=== PATIENT | female | born 1930 | race Caucasian/White ===

== ENCOUNTER 2018-11-29 00:23 | Inpatient (IN) | payer MEDICARE, BC ==
[~2018-11-29] VITALS: Ht 149.9 cm; Wt 47.6 kg
[2018-11-29 00:37] VITALS: BP 150/70
--- NOTE | 2018-11-29 00:37 | NUR ---
RUNNER MANRECREATION THERAPIST NOTES Received patient from [facility], via [facility] assisted by 2 bench repair technician, with son and [id number]. Admitted to Tele 309-2 due to UTI under the service of Roni BARRETT. Pt A/O X4, able to ambulate from gurney to bed with maximum assistance. Assisted pt to bed comfortably. Admission routine done. On tele monitor with SR. Initial skin assessment done: skin intact with bruise L upper arm - patient claimed she has no idea how did she get the bruise. With wrist brace on the right noted - patient claimed to keep her r hand awake. Kept on bed comfortably. All nursing needs attended. Brought home meds listed and to be delivered to pharmacy in AM. Home med recon done - to be F/u with MD. Patient on RA, no SOB/respiratory distress noted. Patient denies discomfort at this time. Admission ordered noted and carried out. Kept bed low and locked, siderails x2 up, call light at bedside. Will continue to monitor accordingly.
[2018-11-29 01:00] VITALS: BP 150/71
[2018-11-29] MEDS ORDERED: Z GUARD REMEDY 2 OZ OINT TP PRN (01:00)
[2018-11-29] MEDS ORDERED: MAG HYDROX/AL HYDROX/SIMETH 30 ML UDC PO PRN (01:00)
[2018-11-29] MEDS ORDERED: MAGNESIUM HYDROXIDE 30 ML UDC PO PRN (01:00)
[2018-11-29] MEDS ORDERED: ONDANSETRON HCL/PF 4 MG/2 ML VIAL IVP PRN (01:00)
[2018-11-29] MEDS ORDERED: ZOLPIDEM TARTRATE 5 MG TABLET PO PRN (01:00)
[2018-11-29] MEDS: IV NS 0.9% 1,000 ML IV PRN ×2 (01:12→20:18)
[2018-11-29] MEDS ORDERED: PANT40TA2 PO (01:33)
[2018-11-29] MEDS ORDERED: metoprolol (01:33)
[2018-11-29] MEDS ORDERED: LOSA100T31 PO (01:33)
[2018-11-29] MEDS ORDERED: APIX2.5T PO (01:33)
[2018-11-29] MEDS ORDERED: ASPI-605 PO (01:35)
[2018-11-29] MEDS ORDERED: HYDR-4354 PO (01:35)
[2018-11-29] MEDS ORDERED: OMEG100037 PO (01:35)
[2018-11-29] MEDS ORDERED: CHOL20004 PO (01:35)
[2018-11-29] MEDS ORDERED: METO25TA6 PO (01:41)
--- NOTE | 2018-11-29 05:51 | NUR ---
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 Lab notified for specimen chicken picker.
--- NOTE | 2018-11-29 06:34 | NUR ---
DIPPER AND BAKER CLOSING NOTES Patient awake on Anne's position on bed. With patent peripheral IV line LAC # 20 with Ns @ 75ml/hr as ordered. Patient afebrile the whole shift, no new complaints made. Noted asleep most of the shift. All nursing needs attended. Kept bed low and locked. Call light at bedside. Endorsed to the next shift. Addendum: 11/29/18 at 0650 by GIOVANNY VELASQUEZ RN On tele monitor with sinus rhythm and episodes of sinus veronica when asleep.
[2018-11-29 06:48] LABS: BASOPHILS % (AUTO) 0.2 % (0.0-2.0); EOSINOPHILS % (AUTO) 2.1 % (0.0-6.0); HEMATOCRIT 41 % (39-51); HEMOGLOBIN 14.1 g/dL (13.5-17.5); LYMPHOCYTES # (AUTO) 1.4 /CMM (0.8-4.8); MEAN CORPUSCULAR HGB CONC 34 g/dl (31.0-36.0); MEAN CORPUSCULAR VOLUME 92 fL (80-96); MONOCYTES # (AUTO) 0.4 /CMM (0.1-1.30); MONOCYTES % (AUTO) 6.5 % (2.0-12.0); NEUTROPHILS % (AUTO) 67.2 % (43.0-81.0); PLATELET COUNT (AUTO) 229 /CMM (150-450); RED BLOOD CELL COUNT(AUTO) 4.48 MIL/uL (4.5-6.0)
[2018-11-29 06:54] LABS: CALCIUM, SERUM 9.4 mg/dL (8.5-10.1); CARBON DIOXIDE 25 mmol/L (21-32); CHLORIDE 106 mmol/L (98-107); CREATININE 0.7 mg/dL (0.6-1.3); GLUCOSE 107 mg/dL (74-106); MAGNESIUM 2.1 mg/dL (1.8-2.4); PHOSPHORUS 2.9 mg/dL (2.5-4.9); POTASSIUM 3.3 mmol/L (3.5-5.1); SODIUM SERUM 142 mmol/L (136-145); UREA NITROGEN, BLOOD 17 mg/dL (7-18)
[2018-11-29 07:00] LABS: CHOLESTEROL 151 mg/dL (<200); HDL CHOLESTEROL 78 mg/dL (40-60); LDL 67 mg/dL (0-99); TRIGLYCERIDES 65 mg/dL (30-150)
[2018-11-29 08:00] VITALS: BP_SYST 150; BP_SYST 155; BP_DIAS 73
--- NOTE | 2018-11-29 08:00 | NUR ---
RN NOTES RECEIVED PATIENT IN THE ROOM. PATIENT A/O X3/4 ON TELE [id number] . PATIENT HAS NO ACUTE RESPIRATORY DISTRESS, WAS COMPLAINING OF PAIN GENERALIZED 6/10 PER PER PAIN SCALE. PATIENT USING BATHROOM, AMBULATORY, INFUSING NS AT 75 ML/HE INTACT ON LEFT FA. CALL LIGHT WITHIN TO REACH, SAFETY PRECAUTION MAINTAINED ALL THE TIME.
[2018-11-29] MEDS: HYDROCODONE/APAP 5/325MG 1 EACH TABLET PO PRN ×3 (08:33→19:20)
--- NOTE | 2018-11-29 08:33 | NUR ---
RN NOTES ADMINISTERED NARCO 5/325 MG PO PRN FOR GENERALIZED PAIN 03/31 PER PATIENT REQUEST, V/S TAKEN BP 155/ 73, P-61. CONTINUED MONITORING,
[2018-11-29] MEDS: CEFTRIAXONE 1 G in IV D5W 50 ML IV SCH (09:22)
--- NOTE | 2018-11-29 10:00 | NUR ---
rn notes per cardiology d/c tele to med/Surg.
[2018-11-29] MEDS: POTASSIUM CHLORIDE 20 MEQ TAB.PRT.SR PO SCH ×2 (10:21→11:30)
[2018-11-29] MEDS: ACETAMINOPHEN 325 MG TABLET PO PRN (10:25)
[2018-11-29 11:11] LABS: ALBUMIN 3.3 g/dL (3.4-5.0); BILIRUBIN,DIRECT 0.1 mg/dL (0.0-0.2); BILIRUBIN,TOTAL 0.5 mg/dL (0.2-1.0); TOTAL PROTEIN, SERUM 6.3 g/dL (6.4-8.2)
[2018-11-29] MEDS ORDERED: POTASSIUM CHLORIDE 20 MEQ TAB.PRT.SR PO ONE (14:00)
--- NOTE | 2018-11-29 14:49 | NUR ---
RN NOTES ADMINISTERED NARCO 5/325 MG PO PRN FOR GENERALIZED PAIN 03/31 PER PATIENT REQUEST, V/S STABLE, CONTINUED MONITORING.
[2018-11-29 16:00] VITALS: BP 145/76
[2018-11-29] MEDS: METOPROLOL TARTRATE 25 MG TABLET PO SCH (17:33)
--- NOTE | 2018-11-29 18:30 | NUR ---
RN NOTES PATIENT STABLE EATING DINNER, V/S STABLE, MED COMPLAINT. PATIENT USING WALKER TO AMBULATE, MONITORING FALL PRECAUTION, IV ACCESS ON LEFT FA INFUSING NS AT 75 ML/HR. CALL LIGHT WITHIN TO REACH, FAMILY NEXT TO THE BED. ENDORSED ONCOMING NURSE FOR PLAN OF CARE.
[2018-11-29] MEDS: APIXABAN 2.5 MG TABLET PO SCH (19:15)
--- NOTE | 2018-11-29 19:20 | NUR ---
RN NOTES ADMINISTERED NARCO 5/325 MG PO PRN FOR GENERALIZED PAIN 03/31 PER PATIENT REQUEST, V/S STABLE.
--- NOTE | 2018-11-29 19:50 | NUR ---
RN INITIAL NOTES: RECEIVED REPORT FROM RAJINDER WEI. PT IN BED, AWAKE, A/O X3 ON RA RESPIRATION EVEN AND UNLABORED, IV ACCESS PATENT AND FLUSHING WELL, INFUSING WITH NS AT 75ML/HR. DISCUSSED PLAN OF CARE TO THE PT. PT RECEIVED PAIN MEDICATION NOT TOO LONG AGO. PT CAN AMBULATE TO RESTROOM WITH WALKER. SAFETY PRECAUTIONS FOR FALL INITIATED, CALL LIGHT IN REACH, WILL CONTINUE MONITORING PT.
[2018-11-29 20:00] VITALS: BP 143/77
--- NOTE | 2018-11-30 | NUR ---
PRN NORCO: PT C/O GENERALIZED Arthritis pain requesting 03/31 requesting for pain medication, prn norco 5/325 mg tab po administered at this time, will continue to monitor and reassess
[2018-11-30 00:01] VITALS: BP 144/70
--- NOTE | 2018-11-30 00:05 | NUR ---
RN NOTES: PT REFUSED TO BE DISCONNECTED FROM IVF, PT COMPLAINING THAT IT MAKES HER URINATE FREQUENTLY, PT MADE AWARE OF RISK AND BENEFITS OF HYDRATION.
[2018-11-30 06:24] LABS: BASOPHILS % (AUTO) 0.4 % (0.0-2.0); EOSINOPHILS % (AUTO) 2.5 % (0.0-6.0); HEMATOCRIT 42 % (33-45); HEMOGLOBIN 14.2 g/dL (11.5-14.8); LYMPHOCYTES # (AUTO) 1.2 /CMM (0.8-4.8); LYMPHOCYTES % (AUTO) 25.8 % (20.0-44.0); MEAN CORPUSCULAR HGB CONC 34 g/dl (31.0-36.0); MEAN CORPUSCULAR VOLUME 92 fL (82-100); MONOCYTES # (AUTO) 0.3 /CMM (0.1-1.30); MONOCYTES % (AUTO) 6.3 % (2.0-12.0); NEUTROPHILS # (AUTO) 3.1 /CMM (1.8-8.9); PLATELET COUNT (AUTO) 211 /CMM (150-450); RED BLOOD CELL COUNT(AUTO) 4.55 MIL/uL (4.0-5.2); WHITE BLOOD COUNT (AUTO) 4.7 K/uL (4.3-11.0)
[2018-11-30 06:43] LABS: CALCIUM, SERUM 9.5 mg/dL (8.5-10.1); CARBON DIOXIDE 24 mmol/L (21-32); CHLORIDE 109 mmol/L (98-107); CREATININE 0.6 mg/dL (0.6-1.3); GLUCOSE 109 mg/dL (74-106); MAGNESIUM 2.1 mg/dL (1.8-2.4); PHOSPHORUS 2.4 mg/dL (2.5-4.9); POTASSIUM 4.1 mmol/L (3.5-5.1); SODIUM SERUM 141 mmol/L (136-145); UREA NITROGEN, BLOOD 14 mg/dL (7-18)
--- NOTE | 2018-11-30 07:15 | NUR ---
MS RN OPENING NOTE RECEIVED PT, SITTING UP IN BED, A/0X4. PT REQUESTING ASSISTANCE GOING TO THE BATHROOM, MINIATURE SET DESIGNER NURSE AND FINISHING DEPARTMENT SUPERVISOR ASSISTED PT TO BATHROOM. PT DENIES CHEST PAIN, SOB, N/V. PT IS REQUESTING NORCO FOR GENERALIZED PAIN, INFORMED PT THAT THE NURSE WILL REVIEW ORDERED MEDICATIONS AND PENDING VS CHECK WILL ADMINISTER NORCO IF DUE. PT VERBALIZED AGREEMENT AND UNDERSTANDING. PT ASSISTED BACK TO BED. LEFT FA #22G IV IS INFUSING NS @ 75ML/HR WITHOUT REDNESS OR SWELLING. ALL NEEDS ATTENDED TO. BED IS LOCKED AND IN LOWEST POSITION, SIDE RAILS UP X2, BED ALARM ON, CALL LIGHT AND POSSESSIONS WITHIN REACH.
--- NOTE | 2018-11-30 07:27 | NUR ---
RN CLOSING NOTES: PT IN BED, AWAKE, REMAINS ON RA, IV ACCESS REMAINS PATENT AND FLUSHING WELL INFUSING WITH NS AT 75ML/HR. VS REMAINS STABLE, NEEDS ATTENDED. FOR PSYCH CONSULT. SAFETY PRECAUTIONS FOR FALL REMAINS ENGAGED, CALL LIGHT IN REACH, WILL ENDORSE TO DAY RN FOR CONTINUITY OF CARE.
[2018-11-30 08:00] VITALS: BP 158/78
[2018-11-30] MEDS: CEFTRIAXONE 1 G in IV D5W 50 ML IV SCH (08:22)
[2018-11-30] MEDS: METOPROLOL TARTRATE 25 MG TABLET PO SCH ×2 (08:22→16:26)
[2018-11-30] MEDS: ASPIRIN EC 81 MG TABLET.DR PO SCH (08:23)
[2018-11-30] MEDS: HYDROCODONE/APAP 5/325MG 1 EACH TABLET PO PRN ×4 (08:23→22:48)
[2018-11-30] MEDS: LOSARTAN POTASSIUM 50 MG TABLET PO SCH (08:23)
[2018-11-30] MEDS: PANTOPRAZOLE 40 MG TABLET.DR PO SCH (08:23)
[2018-11-30] MEDS: CHOLECALCIFEROL 1,000 UNIT TABLET (VIT D3) PO SCH (08:23)
[2018-11-30] MEDS: APIXABAN 2.5 MG TABLET PO SCH ×2 (08:45→16:27)
--- NOTE | 2018-11-30 10:39 | NUR ---
MS RN NOTE PER DR. LEI, NO PHOS REPLACEMENT AT THIS TIME.
--- NOTE | 2018-11-30 11:00 | NUR ---
MS WEI NOTE PRELIMINARY URINE CX RESULT RECIEVED FROM [facility]. WILL INFORM DR. LEI AND PLACE IN CHART. Addendum: 11/30/18 at 1121 by MAIK HUA RN FAXED RESULTS ARE FOR A DIFFERENT PATIENT. WILL FOLLOW UP WITH [facility]PART[facility].
--- NOTE | 2018-11-30 11:17 | NUR ---
MS RN NOTE PER [employer], THEY ALREADY HAVE THE FACE SHEET FOR PSYCH CONSULT AND WILL INFORM DR. CASTILLO REGARDING PSYCH EVAL ONCE HE ARRIVES TO THE UNIT.
[2018-11-30] MEDS ORDERED: K PHOS NEUTRAL 250 MG TABLET PO ONE (11:30)
--- NOTE | 2018-11-30 11:37 | NUR ---
MS RN NOTE CALLED SHAUN VAIL RN AT [facility] AT [phone] TO REQUEST CORRECT URINE CULTURE RESULTS TO BE FAXED. LEFT VOICEMAIL WITH CALL BACK INFORMATION, AWAITING RESPONSE.
--- NOTE | 2018-11-30 12:00 | NUR ---
MS RN NOTE PER SHAUN VAIL, RN AT [facility], HE WILL FAX URINE CX RESULTS SHORTLY.
--- NOTE | 2018-11-30 12:00 | NUR ---
MS RN NOTE AFTER ASSISTING PT TO THE BATHROOM, THE NURSE ATTEMPTED TO RECONNECT PRIMARY IV BUT PT STATED SHE DID NOT WANT ANYMORE IV FLUIDS. EDUCATION PROVIDED, PT STILL DECLINED.
--- NOTE | 2018-11-30 13:21 | NUR ---
Social service consult requested by Sabina Dumont for pt living alone and POA/Advance Directive. Pt is a 88 year old female transferred from [facility] for UTI. Sw met with pt at bedside, pt appeared to be clean and well groomed. Pt is alert and oriented x3, pt seems to diverge into tangents about past hospital admissions. SW began to explain advance directives/POA and pt became upset with adoption social worker. Sw let pt vent and address pts concerns, sw provided support and education regarding advance directive and pts choice to complete form at her chosen time with either a notary or two witnesses (non relatives or hospital staff). SW left blank advance directive/POA paperwork with pt at bedside. Pt provide social work with sons number for emergency only, pt requested that her son only be contacted during an emergency [place] . Pt reports her son is going to help her get in contact with a psychiatrist. Sw offered pt resources for mental health, pet declined. Pt reports she is lives on her own and conducts all her daily activities on her own. Pt is requesting to be discharged back home so she may be able to address her future move to her choice of assisted livings. No further social sciences professor needs identified at this time. SW updated RN with the aforementioned discussion, pts RN informed social work that psych consult has been requested.
--- NOTE | 2018-11-30 14:00 | NUR ---
MS RN NOTE CALLED SHAUN Jimenez RN AT [facility], LEFT VOICEMAIL TO FOLLOW UP REGARDING URINE CX RESULTS THAT HAVE NOT YET BEEN RECEIVED. LEFT CALL BACK AND [address] [facility]ST FAX NUMBER. AWAITING RESPONSE AND RECEIPT OF RECORDS.
--- NOTE | 2018-11-30 14:15 | NUR ---
MS RN NOTE THE PT INFORMED THE NURSE THAT THEY ONLY PEOPLE SHE WOULD LIKE TO KNOW ABOUT HER STAY OR DISCUSS MEDICAL INFORMATION INCLUDE HER SON BIB FLORES AND HER GRANDSON KELLEY FONG. SHE DOES NOT WANT INFORMATION SHARED WITH HER DAUGHTER IN LAW YARIEL DIAMOND AT THIS TIME.
[2018-11-30 16:00] VITALS: BP 163/72
--- NOTE | 2018-11-30 17:51 | NUR ---
MS RN NOTE DR. CASTILLO AT THE BEDSIDE FOR PSYCH EVAL.
--- NOTE | 2018-11-30 18:14 | NUR ---
MS RN CLOSING NOTE PT, SITTING UP IN BED, A/0X4 WITH PERIODS OF AGITATION, AND SUSPICION OF HOSPITAL STAFF. PT DENIES CHEST PAIN, SOB, N/V. BREATHING IS EVEN AND UNLABORED ON ROOM AIR. LEFT FA #22G IV IS PATENT, CLEAN DRY AND INTACT WITH ORDERS FOR NS @ 75ML/HR HOWEVER PT IS STILL REFUSING IV FLUIDS AT THIS TIME. ASSISTED PT WITH ADLS AND TO TURN AND REPOSITION Q2H FOR THE DURATION OF THE SHIFT. ALL NEEDS ATTENDED TO. PSYCH CONSULT COMPLETED BY DR. CASTILLO WITH NO NEW ORDERS AT THIS TIME. BED IS LOCKED AND IN LOWEST POSITION, SIDE RAILS UP X2, CALL LIGHT AND POSSESSIONS WITHIN REACH. WILL ENDORSE TO BODY PIERCER NURSE FOR CONTINUITY OF CARE.
--- NOTE | 2018-11-30 19:30 | NUR ---
MS RN INITIAL NOTES Patient in bed, awake. Appears irritable, reports she hasn't been seen by the doctor all day. IVF not infusing, per report patient is non compliant with IVF and declined education. Maintained safety, will cont to monitor.
[2018-11-30 20:00] VITALS: BP 130/70
[2018-11-30 20:30] VITALS: BP 130/70
[2018-12-01] MEDS: ACETAMINOPHEN 325 MG TABLET PO PRN (00:39)
[2018-12-01] MEDS: HYDROCODONE/APAP 5/325MG 1 EACH TABLET PO PRN ×4 (04:38→20:28)
--- NOTE | 2018-12-01 06:34 | NUR ---
MS RN CLOSING NOTES Patient in bed, stable oxygen saturation on RA. IVF infusing at 75ml/hr, tolerating well. Ambulates with walker, standby assist. Generalized body pain controlled with PRN [place]. Voiding without difficulty, maintained safety. Previous blood culture and urine culture from outside hosp. to follow, will endorse to oncoming RN.
[2018-12-01 07:20] LABS: BASOPHILS % (AUTO) 0.5 % (0.0-2.0); EOSINOPHILS % (AUTO) 2.9 % (0.0-6.0); HEMATOCRIT 45 % (33-45); HEMOGLOBIN 14.8 g/dL (11.5-14.8); LYMPHOCYTES # (AUTO) 1.4 /CMM (0.8-4.8); MEAN CORPUSCULAR HGB CONC 33 g/dl (31.0-36.0); MEAN CORPUSCULAR VOLUME 93 fL (82-100); MONOCYTES # (AUTO) 0.3 /CMM (0.1-1.30); NEUTROPHILS # (AUTO) 2.9 /CMM (1.8-8.9); NEUTROPHILS % (AUTO) 61.6 % (43.0-81.0); PLATELET COUNT (AUTO) 201 /CMM (150-450); RED BLOOD CELL COUNT(AUTO) 4.82 MIL/uL (4.0-5.2); WHITE BLOOD COUNT (AUTO) 4.8 K/uL (4.3-11.0)
--- NOTE | 2018-12-01 07:20 | NUR ---
MS/RN NOTE THE PATIENT ALERT AND ORIENTED X4. IN ROOM AIR AND DENIES SOB. RESPIRATION REGULAR AND UNLABORED. DENIES PAIN. THE PATIENT IN NO APPARENT DISTRESS AT THIS TIME. LFA G 22 PATENT AND NORMAL SALINE INFUSING AT 75ML/HR. NO S/S INFILTRATION NOTED. BED LOW AND LOCKED. SIDE RAILS UP X2. CALL LIGHT WITHIN REACH. WILL CONTINUE TO MONITOR.
[2018-12-01 08:07] LABS: CARBON DIOXIDE 26 mmol/L (21-32); CHLORIDE 107 mmol/L (98-107); CREATININE 0.6 mg/dL (0.6-1.3); GLUCOSE 91 mg/dL (74-106); MAGNESIUM 2.2 mg/dL (1.8-2.4); PHOSPHORUS 3.5 mg/dL (2.5-4.9); SODIUM SERUM 142 mmol/L (136-145); UREA NITROGEN, BLOOD 12 mg/dL (7-18)
[2018-12-01] MEDS: CEFTRIAXONE 1 G in IV D5W 50 ML IV SCH (08:50)
[2018-12-01] MEDS: METOPROLOL TARTRATE 25 MG TABLET PO SCH ×2 (09:00→16:19)
[2018-12-01] MEDS: LOSARTAN POTASSIUM 50 MG TABLET PO SCH (09:08)
[2018-12-01] MEDS: ASPIRIN EC 81 MG TABLET.DR PO SCH (09:09)
[2018-12-01] MEDS: PANTOPRAZOLE 40 MG TABLET.DR PO SCH (09:09)
[2018-12-01] MEDS: CHOLECALCIFEROL 1,000 UNIT TABLET (VIT D3) PO SCH (09:09)
[2018-12-01] MEDS: APIXABAN 2.5 MG TABLET PO SCH ×2 (09:33→16:19)
--- NOTE | 2018-12-01 09:44 | NUR ---
MS/RN NOTE LOPRESSOR 25 MG HELD DUE TO DECREASED HEART RATE. HEART RATE IS 55.
[2018-12-01] MEDS: NITROFURANTOIN/NITROFURAN MAC 100 MG CAPSULE PO SCH ×2 (11:49→20:28)
[2018-12-01 16:26] VITALS: BP 143/69
--- NOTE | 2018-12-01 18:53 | NUR ---
MS/RN NOTE THE PATIENT ALERT AND ORIENTED X4. IN ROOM AIR AND SATURATION IS AT 97%. DENIES SOB. RESPIRATION REGULAR AND UNLABORED. DENIES PAIN. LFA G 22 PATENT AND SALINE LOCKED. BED LOW AND LOCKED. SIDE RAILS UP X2. CALL LIGHT WITHIN REACH. WILL ENDORSE TO SLEEVE IRONER.
--- NOTE | 2018-12-01 19:00 | NUR ---
MS RN OPENING NOTES Received patient sitting up in bed, alert, oriented x 4. Breathing even and unlabored. Not in any distress. No complaints as of this time. Safety measures in place; call lala within reach. Bed in low, locked position. Patient stable as endorsed by the AM nurse. Will continue to monitor accordingly
[2018-12-01 20:00] VITALS: BP 158/76
--- NOTE | 2018-12-01 20:29 | NUR ---
RN NOTES Patient c/o generalized pain, 05/01. [place] 5-325 given as ordered. Will continue to monitor
[2018-12-01 21:05] VITALS: BP 158/76
[2018-12-02] MEDS: HYDROCODONE/APAP 5/325MG 1 EACH TABLET PO PRN ×3 (01:27→13:25)
--- NOTE | 2018-12-02 01:27 | NUR ---
RN NOTES Patient c/o generalized pain, 03/31. [place] 5-325 given as ordered. Will continue to monitor
[2018-12-02 04:00] VITALS: BP 151/82
--- NOTE | 2018-12-02 06:42 | NUR ---
RN CLOSING NOTES Patient in bed, alert, oriented x 3. Not in any distress. No acute changes overnight. All needs attended to. All due medications given as ordered. Safety precautions in place; call lala within reach. Bed in low, locked position. Will endorse JACQUI to oncoming RN.
--- NOTE | 2018-12-02 07:48 | NUR ---
MS RN NOTES PATIENT RECEIVED RESTING INSIDE ROOM. AWAKE, ALERT AND ORIENTED X 3, VERBALLY RESPONSIVE AND RESPONDS TO VERBAL AND TACTILE STIMULI. BREATHING EVEN AND UNLABORED. NO ACUTE DISTRESS. DENIES ANY PAIN OR DISCOMFORT. PATIENT CALM AND RELAXED. MAINTAINED ISOLATION PRECAUTIONS. WILL CONTINUE TO MONITOR. BED LOCKED AND IN LOW POSITION. BILATERAL UPPER SIDE RAILS UP AND LOCKED. CALL LIGHT WITHIN EASY REACH
[2018-12-02 08:00] VITALS: BP 147/82
[2018-12-02] MEDS: NITROFURANTOIN/NITROFURAN MAC 100 MG CAPSULE PO SCH (08:32)
[2018-12-02] MEDS: PANTOPRAZOLE 40 MG TABLET.DR PO SCH (08:32)
[2018-12-02] MEDS: CHOLECALCIFEROL 1,000 UNIT TABLET (VIT D3) PO SCH (08:32)
[2018-12-02] MEDS: LOSARTAN POTASSIUM 50 MG TABLET PO SCH (08:32)
[2018-12-02 08:33] VITALS: BP 147/82
[2018-12-02] MEDS: ASPIRIN EC 81 MG TABLET.DR PO SCH (08:33)
[2018-12-02] MEDS: METOPROLOL TARTRATE 25 MG TABLET PO SCH (08:33)
[2018-12-02] MEDS: APIXABAN 2.5 MG TABLET PO SCH (08:33)
[2018-12-02] MEDS ORDERED: MUPIROCIN OINT 2% 22 GM TUBE TP SCH (09:30)
--- NOTE | 2018-12-02 12:21 | NUR ---
MS RN NOTES WITH ORDER FROM DR. BRUNO FOR CIPROFLOXACIN PO. VERIFIED ALLERGY WITH PATIENT. PER PATIENT, SHE IS OK TO TAKE CIPRO BUT SHE REFUSES TO HAVE TO NOW AND WANTS TO START HAVING IT TOMORROW SHE ALREADY HAD ANTIBIOTIC TODAY (NITROFURANTOIN). EXPLAINED TO PATIENT THAT NITROFURANTOIN IS A DIFFERENT TYPE OF ANTIBIOTIC AND THAT PER URINE C/S IS SHOWING SUSCEPTIBILITY TO CIPRO. PATIENT VERBALIZED UNDERSTANDING BUT STILL INSISTS TO HAVE CIPRO TOMORROW. DR. BRUNO MADE AWARE. WILL CONTINUE TO MONITOR
[2018-12-02] MEDS ORDERED: CIPROFLOXACIN HCL 500 MG TABLET PO SCH (13:00)
--- NOTE | 2018-12-02 14:02 | NUR ---
MS RN NOTES PATIENT FOR DISCHARGE TODAY. TO DISCHARGE TO [facility]. DISCHARGE INSTRUCTIONS AND EDUCATION GIVEN TO PATIENT AND VERBALIZED UNDERSTANDING. ALL BELONGINGS COMPLETE, NO REPORT OF MISSING INVENTORY. HOME MEDICATIONS RECEIVED FROM PHARMACY AND GIVEN TO PATIENT. PLACED CALL TO [facility] AND GAVE REPORT TO DEVON WEI. IV REMOVED WITH MINIMAL BLEEDING NOTED, PRESSURE DRESSING PLACED ON SITE. PATIENT LEFT UNIT AT 1400 VIA GURNEY IN STABLE CONDITION. BREATHING EVEN AND UNLABORED. NO ACUTE DISTRESS NOTED. PATIENT DENIES ANY PAIN OR DISCOMFORT. MD AWARE OF DISCHARGE
--- NOTE | 2018-12-02 14:06 | NUR ---
MS RN NOTES NO NEW SKIN BREAKDOWN ON DISCHARGE
== END 2018-12-02 14:30 | DRG 690 ==
LOC: EDSEX 00:23 → TELE 00:23 → MED 10:29
PROVIDERS: ADMIT Student in an Organized Health Care Education/Training Program; ATTEND Internal Medicine
DX: N39.0 Urinary tract infection, site not specified (principal); F11.20 Opioid dependence, uncomplicated; E87.6 Hypokalemia; I10 Essential (primary) hypertension; M79.7 Fibromyalgia; C50.919 Malignant neoplasm of unspecified site of unspecified female breast; M19.90 Unspecified osteoarthritis, unspecified site; I48.0 Paroxysmal atrial fibrillation; M48.00 Spinal stenosis, site unspecified; Z85.3 Personal history of malignant neoplasm of breast; Z88.1 Allergy status to other antibiotic agents; F43.22 Adjustment disorder with anxiety; B96.89 Other specified bacterial agents as the cause of diseases classified elsewhere
CPT/HCPCS: 36415; 76700-TC; 80048-TC; 80061-TC; 80076-TC; 83690-TC; 83735-TC; 84100-TC; 85025-TC; 87081-TC; 87086-TC; 87186-TC; G0378; J0696; J7030; J7060